=== PATIENT | male | born 1960 | race Caucasian/White ===

== ENCOUNTER 2021-06-22 11:12 | Emergency (ER) | payer BC ==
[2021-06-22 12:05] LABS: HEMOGLOBIN 15.9 gm/dl (14.0-17.5); RED BLOOD COUNT 5.19 M/UL (4.20-5.50)
[2021-06-22 12:31] LABS: BUN/CREATININE RATIO 20 (0-10)
== END 2021-06-22 14:46 | disposition home or self-care (01) ==
LOC: ER1 11:12
DX: I10 Essential (primary) hypertension (principal); F17.200 Nicotine dependence, unspecified, uncomplicated
CPT/HCPCS: 71045; 80053; 82550; 82553; 83874; 84484; 85025; 93005; 99284